=== PATIENT | female | born 1960 | race Caucasian/White ===

== ENCOUNTER 2019-01-09 08:20 | Emergency (ER) | payer OTHER ==
[~2019-01-09] VITALS: Ht 160 cm; Wt 108.0 kg
== END 2019-01-09 15:08 | disposition home or self-care (01) ==
LOC: ER 08:20
DX: M17.12 Unilateral primary osteoarthritis, left knee (principal); M25.562 Pain in left knee; M54.5 Low back pain

== ENCOUNTER 2019-06-19 10:18 | Outpatient (CLI) | payer OTHER | END 2019-06-19 10:31 | disposition home or self-care (01) | LOC: RAD 10:18 | DX: M79.652 Pain in left thigh (principal); M79.605 Pain in left leg; Z76.89 Persons encountering health services in other specified circumstances; Z12.31 Encounter for screening mammogram for malignant neoplasm of breast ==

== ENCOUNTER 2019-06-24 09:32 | Outpatient (CLI) | payer OTHER ==
[2019-06-24] MEDS ORDERED: ZESTRIL40 M1 PO (12:10)
[2019-06-24] MEDS ORDERED: CRESTOR10 MG PO (12:10)
== END 2019-06-24 10:13 | disposition home or self-care (01) ==
LOC: EKG 09:32 → LAB 09:32 → EKG 10:13
DX: M54.2 Cervicalgia (principal); Z76.89 Persons encountering health services in other specified circumstances; D64.89 Other specified anemias; E88.89 Other specified metabolic disorders; D68.8 Other specified coagulation defects; N39.0 Urinary tract infection, site not specified; Z22.322 Carrier or suspected carrier of Methicillin resistant Staphylococcus aureus; E55.9 Vitamin D deficiency, unspecified; I49.8 Other specified cardiac arrhythmias; I10 Essential (primary) hypertension

== ENCOUNTER 2019-09-26 06:15 | Outpatient (CLI) | payer OTHER ==
[~2019-09-26 06:15] MED LIST: CRESTOR10 MG PO; ZESTRIL40 M1 PO
[2019-09-26] MEDS ORDERED: CHILDREN'S ASPI81 MG PO (11:41)
== END 2019-09-26 06:28 | disposition home or self-care (01) ==
LOC: LAB 06:15
PROVIDERS: ATTEND Orthopaedic Surgery
DX: D64.89 Other specified anemias (principal); E88.89 Other specified metabolic disorders; D68.8 Other specified coagulation defects; N39.0 Urinary tract infection, site not specified; Z22.322 Carrier or suspected carrier of Methicillin resistant Staphylococcus aureus; I10 Essential (primary) hypertension; I49.8 Other specified cardiac arrhythmias

== ENCOUNTER 2019-10-03 08:57 | Inpatient (IN) | payer OTHER ==
[~2019-10-03] VITALS: Ht 162.6 cm; Wt 102.5 kg
[~2019-10-03 08:57] MED LIST changes: +CHILDREN'S ASPI81 MG PO
== END 2019-10-16 13:53 | disposition home or self-care (01) | DRG 470 ==
LOC: O/R 10-14 06:23 → SURH 10-14 06:23
PROVIDERS: ADMIT Orthopaedic Surgery; ATTEND Orthopaedic Surgery
PROC: 0SRD0JZ Replacement of Left Knee Joint with Synthetic Substitute, Open Approach (ICD-10-PCS; principal; 2019-10-14 07:00)
DX: M17.12 Unilateral primary osteoarthritis, left knee (principal); I10 Essential (primary) hypertension; M85.662 Other cyst of bone, left lower leg; E03.8 Other specified hypothyroidism

== ENCOUNTER 2019-10-23 11:18 | Outpatient (CLI) | payer OTHER | END 2019-10-23 11:55 | disposition home or self-care (01) | LOC: LAB 11:18 | PROVIDERS: ATTEND Orthopaedic Surgery | DX: D64.89 Other specified anemias (principal); M06.4 Inflammatory polyarthropathy ==

== ENCOUNTER 2019-10-30 11:57 | Outpatient (CLI) | payer OTHER | END 2019-10-30 12:25 | disposition home or self-care (01) | LOC: NUCLEAR 11:57 | PROVIDERS: ATTEND Orthopaedic Surgery | DX: I87.2 Venous insufficiency (chronic) (peripheral) (principal) ==

== ENCOUNTER 2020-01-06 08:06 | Outpatient (CLI) | payer OTHER | END 2020-01-06 08:15 | disposition home or self-care (01) | LOC: LAB 08:06 | PROVIDERS: ATTEND Orthopaedic Surgery | DX: D64.89 Other specified anemias (principal); M06.4 Inflammatory polyarthropathy ==